=== PATIENT | female | born 1980 | race Caucasian/White ===

== ENCOUNTER 2016-12-17 04:56 | Emergency (ER) | payer MEDICAID ==
[~2016-12-17] VITALS: Ht 160 cm; Wt 70.5 kg
[2016-12-17 04:58] VITALS: Ht 160 cm; Wt 70.5 kg
[2016-12-17] MEDS ORDERED: morphine 4 MG/ML VIAL IV STA (05:04)
[2016-12-17] MEDS ORDERED: SOD CHLORIDE 0.9% 1,000 ML IV STA (05:04)
[2016-12-17] MEDS ORDERED: ONDANSETRON 4 MG INJ IV STA ×2 (05:04→05:45)
[2016-12-17 05:12] LABS: URINE BLOOD (Dip) POC Trace-intact (NEGATIVE)
[2016-12-17 05:30] LABS: BASOPHILS % 0.1 % (0.0-2.0); EOSINOPHILS % 0.2 % (0.0-7.0); HEMATOCRIT 38.5 % (37.0-47.0); HEMOGLOBIN 13.3 g/dl (12.0-16.0); LYMPHOCYTES # 1.2 10^3/ul (0.8-2.9); LYMPHOCYTES % 8.5 % (15.0-51.0); MEAN CORPUSCULAR HEMOGLOBIN 28.8 pg (29.0-33.0); MEAN CORPUSCULAR HGB CONC 34.5 g/dl (32.0-37.0); MEAN CORPUSCULAR VOLUME 83.3 fl (82.0-101.0); MEAN PLATELET VOLUME 7.6 fl (7.4-10.4); MONOCYTE # 0.4 10^3/ul (0.3-0.9); NEUTROPHIL # 12.4 10^3/ul (1.6-7.5); NEUTROPHILS % 88.2 % (39.0-77.0); PLATELET COUNT 303 10^3/UL (140-440); RED BLOOD COUNT 4.62 10^6/ul (4.20-5.40); RED CELL DISTRIBUTION WIDTH 13.4 % (11.5-14.5)
[2016-12-17] MEDS ORDERED: PANTOPRAZOLE 40 MG INJ IV ONE (05:30)
[2016-12-17] MEDS ORDERED: HYDR-906 PO (05:37)
--- NOTE | 2016-12-17 05:37 | ERA ---
ER Documentation Chief Complaint Date/Time DATE: 12/17/16 TIME: 05:33 Chief Complaint Abdominal pain HPI The patient is a 36-year-old female, presenting to the ER because of epigastric and right upper quadrant abdominal pain that began 4 hours ago. The pain is 10/ 10, worse with eating. She denies similar symptoms previously, denies fever, chills, neck pain, chest pain, dyspnea. She complains of nausea but no vomiting , denies any lower abdominal pain, dysuria, polyuria, constipation, diarrhea. She does not smoke, drink Past medical/surgical history: None ROS All systems reviewed and are negative except as per history of present illness. Medications Home Meds Active Scripts Hydrocodone/Acetaminophen ([place] 5-325 Tablet) 1 Each Tablet, 1 TAB PO Q6H Y for PAIN, #7 TAB Prov:GAEL REY MD 12/17/16 Allergies Allergies: Coded Allergies: No Known Drug Allergy (Verified Allergy, Unknown, 09/15/07) PMhx/Soc Medical and Surgical Hx: pt denies Medical Hx, pt denies Surgical Hx History of Surgery: No Anesthesia Reaction: No Hx Neurological Disorder: No Hx Respiratory Disorders: No Hx Cardiac Disorders: No Hx Psychiatric Problems: No Hx Miscellaneous Medical Probl: No Hx Alcohol Use: No Hx Substance Use: No Hx Tobacco Use: No Smoking Status: Never smoker Physical Exam Vitals Vital Signs Date Time Temp Pulse Resp B/P Pulse Ox O2 Delivery O2 Flow Rate FiO2 12/17/16 04:58 98.3 86 20 112/69 98 Physical Exam Const: No acute distress. Head: Atraumatic. Eyes: Normal Conjunctiva. ENT: Normal External Ears, Nose and Mouth. Neck: Full range of motion. No meningismus. Resp: Clear to auscultation bilaterally. Cardio: Regular rate and rhythm, no murmurs. Abd: Soft, non distended, normal bowel sounds, mild epigastric and right upper quadrant tenderness, no right lower quadrant, CVA, rigidity, rebound tenderness Skin: No petechiae or rashes. Back: No midline or flank tenderness. Ext: No cyanosis, or edema. Neur: Awake and alert. No focal deficit Psych: Normal Mood and Affect. Results 24 hrs Laboratory Tests Test 12/17/16 05:12 Bedside Urine Blood Trace-intact Bedside Urine Glucose (UA) Negative Bedside Urine Ketones (LAB) Trace Bedside Urine Leukocyte Esterase (L Trace Bedside Urine Nitrite (LAB) Negative Bedside Urine Protein (LAB) 1+ Bedside Urine pH (LAB) 6.5 Current Medications Medications (Trade) Dose Ordered Sig/Mary Ellen Route PRN Reason Start Time Stop Time Status Last Admin Dose Admin Sodium Chloride (NS) 1,000 ml @ 1,000 mls/hr Q1H STAT IV 12/17/16 05:04 12/17/16 06:03 12/17/16 05:13 Morphine Sulfate (morphine) 4 mg ONCE STAT IV 12/17/16 05:04 12/17/16 05:05 DC 12/17/16 05:14 Ondansetron HCl (Zofran Inj) 4 mg ONCE STAT IV 12/17/16 05:04 12/17/16 05:05 DC 12/17/16 05:13 Pantoprazole 40 mg 40 mg ONCE ONCE IV 12/17/16 05:30 12/17/16 05:31 DC 12/17/16 05:33 Sodium Chloride (NS) 1,000 ml @ 1,000 mls/hr Q1H ONCE IV 12/17/16 06:00 12/17/16 06:59 Hydromorphone HCl (Dilaudid) 1 mg ONCE STAT IV 12/17/16 05:45 12/17/16 05:47 DC Ondansetron HCl (Zofran Inj) 4 mg ONCE STAT IV 12/17/16 05:45 12/17/16 05:47 DC Procedures/MDM MEDICAL MAKING DECISION: The patient is a 36-year-old female, presenting with acute biliary colic. She was treated with morphine 4 mg IV, Dilaudid 1 mg IV for pain, Zofran 4 mg IV 2 for nausea, Protonix IV for epigastric abdominal pain and 1 L normal saline for clinical dehydration with good response. The differential diagnoses considered include but are not limited to cholelithiasis , cholecystitis, cystitis, pancreatitis, hepatitis, gastritis, peptic ulcer disease, gastric ulcer, appendicitis, diverticulitis, cholangitis, choledocholithiasis, partial small bowel obstruction. Departure Diagnosis: Primary Impression: Biliary colic Condition: Good Comments She was discharged with [place] I discussed the findings with the patient. I advised the patient to follow-up with the primary physician in about 1-2 days for referral to general surgery for elective cholecystectomy, sooner if needed and return if any concern. GAEL REY MD Dec 17, 2016 05:37
--- NOTE | 2016-12-17 05:42 | RADRPT ---
PROCEDURE: ULTRASOUND LIMITED ABDOMEN CLINICAL INDICATION: 36-year-old female with abdominal pain. TECHNIQUE: Multiple sonographic of the right upper quadrant of the abdomen were obtained. The imag es were reviewed on a PACS workstation. COMPARISON: None. FINDINGS: The pancreas is partially visualized and is otherwise normal. The liver displays diffuse increase echogenicity consistent with fatty infiltration. The liver measu res 19.0 cm in length. No evidence of intrahepatic biliary ductal dilatation is seen. The portal an d hepatic veins are unremarkable. The gallbladder contains multiple shadowing stones. Gallbladder wall thickness is within normal hess its measuring 1.5 mm. No pericholecystic fluid is seen. The common bile duct measures 5.1 mm and is not dilated. The right kidney displays normal echogenicity. The right kidney measures 10.7 cm in maximal length. No caliectasis or hydronephrosis is seen. No free fluid is seen. IMPRESSION: 1. Diffuse fatty infiltration of the liver. 2. Cholelithiasis. .Ranulfo Acuna MD, MD Date Time Electronically viewed and signed by .Ranulfo Acuna MD, MD on 12/17/2016 05:41 .M/
[2016-12-17] MEDS ORDERED: HYDROmorphONE 1 MG/ML SYG IV STA (05:45)
[2016-12-17 06:00] LABS: ALBUMIN 4.6 g/dl (3.3-4.9)
[2016-12-17] MEDS ORDERED: SOD CHLORIDE 0.9% 1,000 ML IV ONE (06:00)
[2016-12-17 06:01] LABS: CONDITION 1; POTASSIUM 3.7 mmol/L (3.5-5.1)
[2016-12-17 06:03] LABS: ALBUMIN/GLOBULIN RATIO 1.24; BILIRUBIN,INDIRECT 0.4 mg/dl (0-1.1); BILIRUBIN,TOTAL 0.4 mg/dl (0.2-1.3); CREATININE 0.56 mg/dl (0.44-1.00); TOTAL PROTEIN 8.3 g/dl (6.1-8.1)
[2016-12-17 06:04] LABS: CALCIUM 9.3 mg/dl (8.4-10.2)
[2016-12-17 09:16] VITALS: BP 109/79; PULSE 89; RESP 16; TEMP 97.8
== END 2016-12-17 09:16 | disposition home or self-care (01) ==
LOC: E/R 04:56
DX: K80.50 Calculus of bile duct without cholangitis or cholecystitis without obstruction (principal); R11.0 Nausea
CPT/HCPCS: 36415; 76705; 80053; 81003; 83690; 85025; 96361; 96374; 96375; 96376; C9113; J1170; J2270; J2405; J7030; Z7502

== ENCOUNTER 2017-06-09 08:40 | Inpatient (IN) | payer MEDICAID ==
[2017-06-09] VITALS (18 sets, daily range): BP systolic 106–139; BP diastolic 63–78; PULSE 70–102; RESP 16–27; TEMP 98.1; Ht 157.5 cm; Wt 64.0 kg
[~2017-06-09] VITALS: Ht 157.5 cm; Wt 64.0 kg
[~2017-06-09 08:40] MED LIST: HYDR-906 PO
[2017-06-09] MEDS ORDERED: ONDANSETRON 4 MG INJ IV STA ×2 (08:55→12:28)
[2017-06-09] MEDS ORDERED: SOD CHLORIDE 0.9% 1,000 ML IV STA (08:55)
[2017-06-09] MEDS ORDERED: morphine 4 MG/ML VIAL IV STA (08:55)
[2017-06-09 09:08] LABS: ADD SCAN DIFF NO
[2017-06-09 09:23] LABS: BASOPHILS % 0.2 % (0.0-2.0); EOSINOPHILS # 0.1 10^3/ul (0.0-0.5); EOSINOPHILS % 0.6 % (0.0-7.0); HEMATOCRIT 38.6 % (37.0-47.0); HEMOGLOBIN 13.2 g/dl (12.0-16.0); LYMPHOCYTES # 2.2 10^3/ul (0.8-2.9); LYMPHOCYTES % 13.7 % (15.0-51.0); MEAN CORPUSCULAR HEMOGLOBIN 28.4 pg (29.0-33.0); MEAN CORPUSCULAR HGB CONC 34.2 g/dl (32.0-37.0); MEAN CORPUSCULAR VOLUME 83.2 fl (82.0-101.0); MEAN PLATELET VOLUME 9.2 fl (7.4-10.4); MONOCYTE # 0.8 10^3/ul (0.3-0.9); MONOCYTES % 4.7 % (0.0-11.0); NEUTROPHIL # 12.9 10^3/ul (1.6-7.5); NEUTROPHILS % 80.6 % (39.0-77.0); PLATELET COUNT 316 10^3/UL (140-415); RED BLOOD COUNT 4.64 10^6/ul (4.20-5.40); RED CELL DISTRIBUTION WIDTH 12.7 % (11.5-14.5)
[2017-06-09 09:34] LABS: ALBUMIN 4.5 g/dl (3.3-4.9); ALBUMIN/GLOBULIN RATIO 1.25; BILIRUBIN,INDIRECT 0.4 mg/dl (0-1.1); BILIRUBIN,TOTAL 0.4 mg/dl (0.2-1.3); CALCIUM 9.7 mg/dl (8.4-10.2); CREATININE 0.65 mg/dl (0.44-1.00); POTASSIUM 3.4 mmol/L (3.5-5.1); TOTAL PROTEIN 8.1 g/dl (6.1-8.1)
[2017-06-09 09:38] LABS: INR 0.9; PROTIME 12.1 Sec (12.2-14.2); PT RATIO 0.9
[2017-06-09 09:45] LABS: TROPONIN-I 0.016 ng/ml (0.00-0.12)
[2017-06-09 10:06] LABS: ADD UMIC YES; UR ASCORBIC ACID NEGATIVE (NEGATIVE); UR BILIRUBIN (Dip) NEGATIVE (NEGATIVE); UR BLOOD (Dip) NEGATIVE (NEGATIVE); UR CLARITY CLEAR (CLEAR); UR COLOR YELLOW (YELLOW); UR GLUCOSE (Dip) NEGATIVE (NEGATIVE); UR KETONES (Dip) 1+ mg/dL (NEGATIVE); UR LEUKOCYTE ESTERASE (Dip) NEGATIVE Leu/ul (NEGATIVE); UR MUCUS FEW /HPF (NONE SEEN); UR NITRITE (Dip) NEGATIVE (NEGATIVE); UR RBC 1 /HPF (0-5); UR SQUAMOUS EPITHELIAL CELL FEW /HPF (FEW); UR TOTAL PROTEIN (Dip) 1+ mg/dl (NEGATIVE); UR UROBILINOGEN (Dip) NEGATIVE (NEGATIVE)
[2017-06-09] MEDS ORDERED: CEFTRIAXONE 1 GM/50 ML (PMX) 50 ML IVPB ONE (10:30)
--- NOTE | 2017-06-09 11:14 | RADRPT ---
PROCEDURE: CT Abdomen and pelvis without contrast. CLINICAL INDICATION: Abdominal pain. Vomiting. TECHNIQUE: CT scan of the abdomen and pelvis without contrast was performed on a multidetector hig h-resolution CT scan. . Coronal and sagittal reformatted images were obtained from the axial [facility] e images. Standard CT scan of the abdomen pelvis without contrast protocols were performed. The total exam CTDI equals 9.65 mGy and the total exam DLP equals 560.04 mGy-cm. One or more of the following dose reduction techniques were used: - Automated exposure control. - Adjustment of the mA and/or kV according to patient size. Use of iterative reconstruction technique. COMPARISON: Abdominal ultrasound 12/17/2016 FINDINGS: The gallbladder is distended and there are multiple calcified gallstones. No gallbladder wall thick ening or pericholecystic fluid. There is a prominent common bile duct with a maximal diameter of ap proximately 6 mm. No choledocholithiasis is demonstrated and no evidence of intrahepatic biliary du ctal dilation. Recommend clinical correlation and consideration of a right upper quadrant abdominal ultrasound. The liver spleen pancreas and adrenal glands are unremarkable. The kidneys are normal in size without calcified renal calculi, hydronephrosis or intra renal masses bilaterally. There is mild urinary bladder wall thickening is nonspecific and may represent cystit is. The uterus is anteverted anteflexed but otherwise unremarkable. In the left adnexa is a 2.5 cm cyst likely a left ovarian cyst. No other adnexal masses. A pelvic ultrasound may be helpful for f urther evaluation. The stomach, small bowel, large bowel and appendix are unremarkable. Negative for intra-abdominal fr ee air, free fluid, abscesses or lymphadenopathy. The aorta is unremarkable. Lung bases are unremarkable. The osseous structures are unremarkable wi thout acute osseous findings are osteoblastic/osteolytic lesions. The lower thoracic abdominal pelv ic rodriguez are unremarkable. IMPRESSION: 1. Multiple calcified gallstones without gallbladder wall thickening or pericholecystic fluid. 2. Prominent common bile duct with a maximal diameter of 6 mm. No choledocholithiasis demonstrated and no evidence of intrahepatic biliary ductal dilation. The right upper quadrant ultrasound may be helpful for further evaluation. 3. In the left adnexa is a 2.5 cm cyst likely a left ovarian cyst. No other adnexal masses. Pelvi c ultrasound may be helpful for further evaluation. 4. Mild urinary bladder wall thickening and underlying cystitis should be considered. 5. No evidence of gastrointestinal disease. Negative for intra-abdominal free air fluid abscesses or lymphadenopathy. RPTAT:AAJJ Melinda Olson Physician Date Time Electronically viewed and signed by Melinda Olson Physician on 06/09/2017 11:14 BM/
[2017-06-09] MEDS ORDERED: SOD CHLORIDE 0.9% 1,000 ML IV ONE (11:30)
--- NOTE | 2017-06-09 11:50 | ERA ---
ER Documentation Chief Complaint Date/Time DATE: 06/09/17 TIME: 11:44 Chief Complaint abd pain with nausea /vomiting since morning h/o gall stones HPI 37-year-old woman presents with right upper quadrant abdominal pain, nausea, and vomiting. She has had multiple episodes of nonbloody nonbilious emesis beginning this morning. She has had similar episodes in the past and has a history of cholelithiasis. She denies diarrhea, no melena, no blood per rectum , no fevers or chills, no chest pain or shortness of breath. ROS All systems reviewed and are negative except as per history of present illness. Medications Home Meds Discontinued Scripts Hydrocodone/Acetaminophen ([place] 5-325 Tablet) 1 Each Tablet, 1 TAB PO Q6H Y for PAIN, #7 TAB Prov:GAEL REY MD 12/17/16 Allergies Allergies: Coded Allergies: No Known Drug Allergy (Verified Allergy, Unknown, 06/09/17) PMhx/Soc Cholelithiasis History of Surgery: No Anesthesia Reaction: No Hx Neurological Disorder: No Hx Respiratory Disorders: No Hx Cardiac Disorders: No Hx Psychiatric Problems: No Hx Miscellaneous Medical Probl: No () Hx Alcohol Use: No Hx Substance Use: No Hx Tobacco Use: No Smoking Status: Never smoker FmHx Family History: No diabetes Physical Exam Vitals Vital Signs Date Time Temp Pulse Resp B/P Pulse Ox O2 Delivery O2 Flow Rate FiO2 06/09/17 12:22 97.8 06/09/17 11:53 98.3 70 17 100/50 100 Room Air 06/09/17 09:44 97.9 60 17 105/60 100 Room Air 06/09/17 08:51 Nasal Cannula 2 06/09/17 08:42 97.6 68 18 89/50 100 Physical Exam GENERAL: Well-developed, moderate discomfort, dehydrated, afebrile, afebrile HEENT: Dry mucous membranes, pink conjunctiva, no cervical spine tenderness or step-off deformities, no goiter, no jaundice or icterus, extraocular movements intact without pain. No submandibular induration, and no pharyngeal erythema NEURO: Alert and oriented 3, cranial nerves II through XII intact bilaterally, pupils equal round reactive to light, no focal deficits or facial asymmetry, sensation intact distally Strength 5/5 in upper and lower extremities bilaterally CARDIAC: Regular rate and rhythm, no murmurs rubs or gallops LUNGS: Clear bilaterally no wheezing crackles or stridor ABDOMEN: Right upper quadrant tenderness to touch with voluntary guarding, positive Rust sign, no rigidity or rebound SKIN: Warm and dry to touch, no abrasions, contusions, or hematomas, no lacerations, no ecchymosis, no target lesions, and without ulcers EXTREMITIES: No clubbing cyanosis or edema, calves are bilaterally symmetrical, no Homans sign, no popliteal cord sign. Distal pulses equal and bilateral PSYCH: Normal affect without agitation or irritability Result Diagram: 06/09/1789906/09/17899 Results 24 hrs Laboratory Tests Test 06/09/17 09:00 06/09/17 09:50 White Blood Count 16.010^3/ul Red Blood Count 4.6410^6/ul Hemoglobin 13.2g/dl Hematocrit 38.6% Mean Corpuscular Volume 83.2fl Mean Corpuscular Hemoglobin 28.4pg Mean Corpuscular Hemoglobin Concent 34.2g/dl Red Cell Distribution Width 12.7% Platelet Count 28565^3/UL Mean Platelet Volume 9.2fl Neutrophils % 80.6% Lymphocytes % 13.7% Monocytes % 4.7% Eosinophils % 0.6% Basophils % 0.2% Nucleated Red Blood Cells % 0.0/100WBC Neutrophils # 12.910^3/ul Lymphocytes # 2.210^3/ul Monocytes # 0.810^3/ul Eosinophils # 0.110^3/ul Basophils # 0.010^3/ul Nucleated Red Blood Cells # 0.010^3/ul Prothrombin Time 12.1Sec Prothrombin Time Ratio 0.9 INR International Normalized Ratio 0.90 Sodium Level 143mmol/L Potassium Level 3.4mmol/L Chloride Level 99mmol/L Carbon Dioxide Level 23mmol/L Anion Gap 24 Blood Urea Nitrogen 18mg/dl Creatinine 0.65mg/dl Glucose Level 141mg/dl Calcium Level 9.7mg/dl Total Bilirubin 0.4mg/dl Direct Bilirubin 0.00mg/dl Indirect Bilirubin 0.4mg/dl Aspartate Amino Transf (AST/SGOT) 67IU/L Alanine Aminotransferase (ALT/SGPT) 42IU/L Alkaline Phosphatase 93IU/L Troponin I 0.016ng/ml Total Protein 8.1g/dl Albumin 4.5g/dl Globulin 3.60g/dl Albumin/Globulin Ratio 1.25 Lipase 56U/L Urine Color YELLOW Urine Clarity CLEAR Urine pH 8.0 Urine Specific [place] 1.020 Urine Ketones 1+mg/dL Urine Nitrite NEGATIVEmg/dL Urine Bilirubin NEGATIVEmg/dL Urine Urobilinogen NEGATIVEmg/dL Urine Leukocyte Esterase NEGATIVELeu/ul Urine Microscopic RBC 1/HPF Urine Microscopic WBC 1/HPF Urine Squamous Epithelial Cells FEW/HPF Urine Mucus FEW/HPF Urine Hemoglobin NEGATIVEmg/dL Urine Glucose NEGATIVEmg/dL Urine Total Protein 1+mg/dl Current Medications Medications (Trade) Dose Ordered Sig/Mary Ellen Route PRN Reason Start Time Stop Time Status Last Admin Dose Admin Sodium Chloride (NS) 1,000 ml @ 1,000 mls/hr Q1H STAT IV 06/09/17 08:55 06/09/17 09:54 DC 06/09/17 09:06 Morphine Sulfate (morphine) 4 mg ONCE STAT IV 06/09/17 08:55 06/09/17 08:57 DC 06/09/17 09:05 Ondansetron HCl 4 mg 4 mg ONCE STAT IV 06/09/17 08:55 06/09/17 08:57 DC 06/09/17 09:05 Ceftriaxone Sodium 50 ml @ 100 mls/hr ONCE ONCE IVPB 06/09/17 10:30 06/09/17 10:59 DC 06/09/17 11:23 Sodium Chloride (NS) 1,000 ml @ 1,000 mls/hr Q1H ONCE IV 06/09/17 11:30 06/09/17 12:29 DC 06/09/17 11:24 Ondansetron HCl (Zofran Inj) 4 mg ONCE STAT IV 06/09/17 12:28 06/09/17 12:30 DC Ketorolac Tromethamine 15 mg 15 mg ONCE STAT IV 06/09/17 12:28 06/09/17 12:30 DC 06/09/17 12:34 Metronidazole (Flagyl 500 Mg (Pmx)) 100 ml @ 100 mls/hr ONCE ONCE IVPB 06/09/17 13:00 06/09/17 13:59 Procedures/MDM IV line was established patient was placed on air sampling and monitoring rhythm strip revealed a sinus rhythm at about 70 bpm with upright P and T waves. Patient was afebrile. Patient was initially hypotensive and received 2 L normal saline intravenously, morphine 4 mg IV, and Zofran 4 mg IV with good response. Patient's blood pressure improved with IV fluid administration and pain control. EKG performed, read by me: 72 bpm, normal sinus rhythm, normal axis, no acute ST segment changes, narrow QRS complex, with good R-wave progression in precordial leads. CT scan of the abdomen and pelvis revealed cholelithiasis no other acute inflammatory infectious pathology was noted. CBC reveals leukocytosis of 16, electrolytes revealed dehydration and hypokalemia 3.4, liver function tests normal, troponin negative. Patient received 1 dose of ceftriaxone 1 g IV here in the ER, later followed by metronidazole 500 mg IV. Gallbladder ultrasound revealed cholelithiasis. Please refer to radiologist dictation for full report. Patient received potassium supplementation 60 mEq p.o. for hypokalemia. I spoke to surgeon director of personnel Dr. Corey regarding the patient's presentation and physical findings. We also discussed ultrasound findings. Patient will be admitted for continued medical management, pain control, and reevaluation. Patient may require acute cholecystectomy. I suspect acute cholecystitis. Departure Diagnosis: Primary Impression: Dehydration Additional Impressions: Hypotension Qualified Code: I95.9 - Hypotension, unspecified hypotension type Cholelithiasis Qualified Code: K80.20 - Calculus of gallbladder without cholecystitis without obstruction Leukocytosis Qualified Code: D72.829 - Leukocytosis, unspecified type Acute cholecystitis Acute hypokalemia Condition: ANTHONY Padilla MD Jun 09, 2017 11:50
[2017-06-09] MEDS ORDERED: KETOROLAC 15 MG INJ IV STA (12:28)
--- NOTE | 2017-06-09 12:32 | RADRPT ---
PROCEDURE: Abdominal Ultrasound (right upper quadrant). CLINICAL INDICATION: Abdominal pain TECHNIQUE: Multiple real-time longitudinal and transverse images of the right upper quadrant of th e abdomen were acquired utilizing a curved array transducer. Images were reviewed on a high-resoluti on PACS workstation. COMPARISON: CT abdomen pelvis 06/09/2017 FINDINGS: The liver is normal in size and echogenicity. No focal masses are identified. There is no evidenc e of intra or extrahepatic ductal dilatation. The common bile duct measures 5.5 mm in diameter. Gal lstones are identified within the gallbladder. There is no gallbladder wall thickening. The visualized portions of the pancreas are unremarkable with obscuration of the tail of the pancrea s. No free fluid is identified. There is no evidence of right hydronephrosis or renal calcification. The right kidney measures 11.4 cm in length. The visualized portions of the aorta and inferior vena cava are within normal limits. IMPRESSION: 1. Cholelithiasis. 2. Otherwise unremarkable right upper quadrant ultrasound. RPTAT: KK .Gilberto Lee MD, Date Time Electronically viewed and signed by .Gilberto Lee MD, MD on 06/09/2017 12:31 .B/
[2017-06-09] MEDS ORDERED: metroNIDAZOLE 500 MG/NS (PMX) 100 ML IVPB ONE (13:00)
[2017-06-09] MEDS ORDERED: POTASSIUM CHLORIDE (SR) 20 MEQ TAB PO STA (13:35)
[2017-06-09] MEDS ORDERED: MAGNESIUM HYDROXIDE 30ML CUP PO PRN (16:30)
[2017-06-09] MEDS ORDERED: ACETAMINOPHEN 650 MG SUPP PR PRN (16:30)
[2017-06-09] MEDS ORDERED: DOCUSATE SODIUM 100 MG CAP PO PRN (16:30)
[2017-06-09] MEDS ORDERED: ONDANSETRON 4 MG INJ IV PRN ×3 (16:30→20:00)
[2017-06-09] MEDS ORDERED: ACETAMINOPHEN 325 MG TAB PO PRN (16:30)
[2017-06-09] MEDS ORDERED: morphine 2 MG INJ IV PRN ×2 (16:30→20:00)
[2017-06-09] MEDS ORDERED: NACL 0.9% 3 ML SYG IV SCH (16:30)
[2017-06-09] MEDS ORDERED: BISACODYL 10 MG SUPP PR PRN (16:30)
[2017-06-09] MEDS ORDERED: HYDROCODONE/APAP (5/325) TAB PO PRN ×2 (16:30)
[2017-06-09] MEDS: SOD CHLORIDE 0.9% 1,000 ML IV SCH (16:32)
[2017-06-09] MEDS: PANTOPRAZOLE 40 MG INJ IV SCH (16:39)
[2017-06-09] MEDS ORDERED: PIPER-TAZO 3.375 GM IV (PMX) 100 ML IVPB SCH ×2 (16:45→21:00)
--- NOTE | 2017-06-09 17:29 | HP ---
Date/Time of Note Date/Time of Note DATE: 06/09/17 TIME: 17:25 Assessment/Plan VTE Prophylaxis VTE Prophylaxis Intervention: SCD's Lines/Catheters IV [facility]from [facility] Saline Lock Assessment/Plan Chief Complaint/Hosp Course Impression and plan 1. Abdominal pain with cholelithiasis and possible early cholecystitis. Patient to be seen by surgeon. Continue IV hydration and analgesics. N.p.o. for now. We will follow-up postop for possible laparoscopic cholecystectomy 2. History of cholelithiasis. Continue IV hydration. Surgeon to follow. DVT prophylaxis: SCDs Admission process time greater than 30 minutes Discussed plan of care with Dr. Goodrich Problems: HPI/ROS Admit Date/Time Admit Date/Time Jun 09, 2017 at 13:32 Hx of Present Illness This is a 37-year-old female who reports having history of gallstones who came to [facility] due to reports of abdominal pain that started this morning around 8 AM when she woke up. She also reported having some nausea and vomiting nonbilious nonbloody. She denies any sick contacts or any symptoms of chest pain or shortness of breath. She reports her pain is in the upper right abdominal quadrant that radiates to her back. She did come to [facility] and had a gallbladder ultrasound that did show her to have cholelithiasis but otherwise unremarkable right upper quadrant abdominal ultrasound. Additionally of abdominal pelvic CT scan did show multiple calcified gallstones without gallbladder wall thickening or pericholecystic fluid. There is also seen prominent common bile duct measuring 6 mm in diameter. Of note there is also seen the left adnexa 2.5 cm cyst likely a left ovarian cyst. On labs patient was with white count of 16.0. She did remain afebrile. She also was with slight hypokalemia with potassium 3.4. Currently the patient reports having some pain on right upper quadrant of abdomen more notably on palpation. She does not remember the last time her bowel movement was. She denied any pain with eating. We will evaluate her for the aformentiond issues ROS 12 point review of systems obtained and entirely negative except that mentioned in the history of present illness PMH/Family/Social Past Medical History Medical/surgical history 1. Cholelithiasis Family History Significant Family History: no pertinent family hx Social History Alcohol Use: none Smoking Status: Never smoker Drug Use: none Exam/Review of Systems Vital Signs Vitals Vital Signs Date Time Temp Pulse Resp B/P Pulse Ox O2 Delivery O2 Flow Rate FiO2 06/09/17 15:46 98.5 70 18 114/67 98 Room Air 06/09/17 08:51 2 Exam Constitutional: alert, oriented Psych: no complaints Neck: supple, No jvd Respiratory: clear to auscultation, normal air movement Cardiovascular: regular rate and rhythm Gastrointestinal: soft, tender (On right upper abdominal quadrant) Extremities: No edema Neurological: WELFARE ELIGIBILITY INTERVIEWER II-XII intact, nl mental status Labs Result Diagram: 06/09/17 0900 06/09/17 0900 Medications Medications Current Medications Sodium Chloride (NS) 1,000 ml @ 100 mls/hr Q10H IV Last administered on t 16:32; Admin Dose 100 MLS/HR; Start 06/09/17 at 16:03 Ondansetron HCl (Zofran Inj) 4 mg Q6H PRN IV NAUSEA AND/OR VOMITING; Start at 16:30 Acetaminophen (Tylenol Tab) 650 mg Q6H PRN PO PAIN LEVEL 1-3 OR FEVER; Start at 16:30 Acetaminophen (Tylenol Supp) 650 mg Q6H PRN [place] PAIN LEVEL 1-3 OR FEVER; Start 06/09/17 at 16:30 Acetaminophen/ Hydrocodone Bitart ([place] (5/325)) 1 tab Q6H PRN PO MODERATE PAIN LEVEL 4-6; Start 06/09/17 at 16:30 Acetaminophen/ Hydrocodone Bitart ([place] (5/325)) 2 tab Q6H PRN PO SEVERE PAIN LEVEL 7-10; Start 06/09/17 at 16:30 Morphine Sulfate (morphine) 2 mg Q4H PRN IV SEVERE PAIN LEVEL 7-10; Start 06/09 at 16:30 Docusate Sodium (Colace) 100 mg Q12H PRN PO CONSTIPATION; Start 06/09/17 at 16: 30 Magnesium Hydroxide (Milk Of Mag) 30 ml DAILY PRN PO CONSTIPATION; Start at 16:30 Bisacodyl (Dulcolax Supp) 10 mg DAILY PRN [place] CONSTIPATION; Start 06/09/17 at 16 :30 Pantoprazole 40 mg 40 mg DAILY@06 IV Last administered on 06/09/17 16:39; Admin Dose 40 MG; Start 06/09/17 at 16:35 Piperacillin Sod/ Tazobactam Sod (Zosyn 3.375gm/ 100 ml (Pmx)) 100 ml @ 200 mls /hr Q6 IVPB Last administered on 06/09/17 16:39; Admin Dose 200 MLS/HR; Start 06/09/17 at 16:45 LUIS SLOAN Jun 09, 2017 17:28
[2017-06-09] MEDS ORDERED: BUPIVACAINE 0.5%/EPI (SDV) 10 ML INJ ONE (18:38)
[2017-06-09] MEDS ORDERED: LIDOCAINE 1% (MDV) 20 ML INJ ONE (18:58)
[2017-06-09] MEDS ORDERED: FENTAnyl 50 MCG/ML VIAL ONE (18:58)
[2017-06-09] MEDS ORDERED: MIDAZOLAM 1 MG/ML 2 ML INJ ONE (18:58)
[2017-06-09] MEDS ORDERED: SUCCINYLCHOLINE CHLORIDE 100 MG/5 ML SYG IV ONE (18:58)
[2017-06-09] MEDS ORDERED: ROCURONIUM 50 MG INJ ONE (18:58)
[2017-06-09] MEDS ORDERED: PROPOFOL 20 ML ONE (18:58)
[2017-06-09] MEDS ORDERED: FAMOTIDINE 20 MG INJ ONE (19:09)
[2017-06-09] MEDS ORDERED: ONDANSETRON 4 MG INJ ONE (19:09)
[2017-06-09] MEDS ORDERED: DEXAMETHASONE 4 MG/ML 1 ML INJ ONE (19:09)
[2017-06-09] MEDS ORDERED: ROPIVACAINE 0.2% 20 ML VIAL ONE (19:21)
[2017-06-09] MEDS ORDERED: DIPHENHYDRAMINE 50 MG INJ IV PRN (19:30)
[2017-06-09] MEDS ORDERED: HYDROmorphONE (0.2 MG/ML) 10ML SYG IV PRN ×2 (19:30)
[2017-06-09] MEDS ORDERED: PROCHLORPERAZINE 10 MG INJ IV PRN (19:30)
[2017-06-09] MEDS ORDERED: SUGAMMADEX SODIUM 200 MG/2 ML VIAL IV ONE (19:36)
[2017-06-09] MEDS ORDERED: KETOROLAC 30 MG INJ ONE (19:37)
[2017-06-09] MEDS ORDERED: BUPIVACAINE 0.25%/EPI (SDV) 30 ML INJ INJ ONE (19:42)
--- NOTE | 2017-06-09 19:56 | OPR ---
Date/Time of Note Date/Time of Note DATE: 06/09/17 TIME: 19:52 Operative Report Procedure Date: Jun 09, 2017 Preoperative Diagnosis Acute cholecystitis Postoperative Diagnosis Acute cholecystitis Operation Performed Laparoscopic cholecystectomy Surgeon: ANGEL MANLEY MD Anesthesia: general Anesthesiologist: LOPEZ SAMS DO Estimated Blood Loss: 0 - 10 ml's Specimens Gallbladder Grafts/Implants None Tubes/Drains None Complications: None Pt Condition Post Procedure: stable Disposition: PACU Indications Symptoms Operative\Procedure Findings After satisfactory general endotracheal anesthesia was achieved, the abdomen was prepped and draped in the usual fashion. The abdomen was insufflated with carbon dioxide through an umbilical Veress needle to 15 mmHg pressure. The Veress needle was removed and the umbilical incision extended to 5 mm through which a 5 mm trocar was placed. A 5 mm 0 lens was placed. Laparoscopy showed an acutely inflamed distended gallbladder. Under direct visualization a 12 mm epigastric trocar was placed as well as 2 5 mm right lateral abdominal trochars. The dome of the gallbladder was grasped and retracted superiorly. The distal gallbladder was grasped and retracted inferior laterally. The hepatoduodenal ligament was carefully dissected between the gallbladder and the well-visualized castro hepatis. The cystic duct was then triply hemoclipped and divided high at the junction of the gallbladder and cystic duct. The cystic artery was identified immediately posteriorly and was triply hemoclipped and divided. The gallbladder was then dissected from below using electrocautery dissection and placed fully intact into an Endo Catch removed by the 12 mm port site. Hemostasis of liver bed was total and irrigant returned clear. The abdomen was then desufflated and the trochars were removed. The fascia of the epigastrium was closed with a single suture of 0 Vicryl. The skin punctures were infiltrated with 30 cc of 0.25% Marcaine with epinephrine and closed with gisela. Sponge and needle counts were reported as correct 2. ANGEL MANLEY MD Jun 09, 2017 19:56
[2017-06-09] MEDS ORDERED: OXYCODONE/ACETAMINOPHEN (5/325) TAB PO PRN (20:00)
[2017-06-09] MEDS: MEPERIDINE 25 MG INJ IV PRN ×2 (20:21→20:22)
[2017-06-09] MEDS: CEFAZOLIN 1 GM/50 ML (PMX) 50 ML IVPB SCH (22:44)
[2017-06-10] MEDS: SOD CHLORIDE 0.9% 1,000 ML IV SCH ×3 (01:09→13:56)
[2017-06-10 02:26] VITALS: BP 128/70; RESP 18
[2017-06-10] MEDS: PANTOPRAZOLE 40 MG INJ IV SCH (05:37)
[2017-06-10] MEDS: CEFAZOLIN 1 GM/50 ML (PMX) 50 ML IVPB SCH ×3 (05:37→21:26)
[2017-06-10 05:45] LABS: ADD SCAN DIFF NO
[2017-06-10 05:49] LABS: BASOPHILS % 0.1 % (0.0-2.0); HEMATOCRIT 37.5 % (37.0-47.0); HEMOGLOBIN 12.6 g/dl (12.0-16.0); LYMPHOCYTES # 0.8 10^3/ul (0.8-2.9); LYMPHOCYTES % 5.5 % (15.0-51.0); MEAN CORPUSCULAR HEMOGLOBIN 28.3 pg (29.0-33.0); MEAN CORPUSCULAR HGB CONC 33.6 g/dl (32.0-37.0); MEAN CORPUSCULAR VOLUME 84.1 fl (82.0-101.0); MEAN PLATELET VOLUME 9.1 fl (7.4-10.4); MONOCYTE # 0.3 10^3/ul (0.3-0.9); MONOCYTES % 2.3 % (0.0-11.0); NEUTROPHIL # 13.3 10^3/ul (1.6-7.5); NEUTROPHILS % 91.6 % (39.0-77.0); PLATELET COUNT 266 10^3/UL (140-415); RED BLOOD COUNT 4.46 10^6/ul (4.20-5.40); WHITE BLOOD COUNT 14.5 10^3/ul (4.8-10.8)
[2017-06-10 06:13] LABS: ALBUMIN 3.4 g/dl (3.3-4.9); ALBUMIN/GLOBULIN RATIO 1.25; BILIRUBIN,INDIRECT 0.3 mg/dl (0-1.1); BILIRUBIN,TOTAL 0.3 mg/dl (0.2-1.3); CALCIUM 8.5 mg/dl (8.4-10.2); CHOL/HDL RATIO 2.5 RATIO; CREATININE 0.55 mg/dl (0.44-1.00); MAGNESIUM 1.6 mg/dl (1.7-2.5); PHOSPHORUS 4.2 mg/dl (2.5-4.9); POTASSIUM 5.2 mmol/L (3.5-5.1); TOTAL PROTEIN 6.1 g/dl (6.1-8.1)
[2017-06-10 06:39] LABS: T3 UPTAKE 35.6 % (23.5-40.5)
[2017-06-10 06:41] LABS: THYROID STIMULATING HORMONE 0.589 MIU/L (0.465-4.680)
--- NOTE | 2017-06-10 07:24 | CONS ---
DATE OF ADMISSION: 06/09/2017 DATE OF CONSULTATION: 06/09/2017 REASON FOR CONSULTATION: Acute cholecystitis. The patient is an otherwise healthy 37-year-old female, who presents to the emergency room with several episodes of right upper quadrant abdominal pain and vomiting. She has a known history of gallstones. In the emergency room, today she was noted to have elevated white blood cell count, and tender right upper quadrant with a positive Rust sign. Imaging was compatible with gallstones. The patient is admitted and surgical consultation was requested in that regard. She has had no fevers, chills, or jaundice. PAST MEDICAL HISTORY: No previous hospitalizations or illnesses other than noted above. REVIEW OF SYSTEMS: HEENT: Unremarkable. LUNGS: No history of asthma or shortness of breath, or pneumonia. HEART: No history of chest pain, PR or arrhythmia. ABDOMEN: In the HPI. EXTREMITIES: Unremarkable. MEDICATION: None. ALLERGIES: NONE. PHYSICAL EXAMINATION: GENERAL APPEARANCE: Patient is a fit-appearing, 37-year-old female, who is awake, alert, in no acute distress. HEENT: Eyes, nose, throat within normal limits. LUNGS: Clear. HEART: Regular rhythm. ABDOMEN: Tender in the right upper quadrant with positive Rust sign. EXTREMITIES: Unremarkable. LABORATORY: Hematocrit 38.6, with a white count of 16,000. BUN, glucose, and electrolytes are unremarkable. LFTs are normal. IMPRESSION: This patient has acute cholecystitis and will most certainly benefit by laparoscopic cholecystectomy as this is at least the second ER visit. The procedure, outcomes, alternatives, and risks have been detailed to the patient who has an excellent understanding of the nature of her situation and agrees to the proposed plan of therapy as outlined. Dictated By: Eyad Corey MD /[email or web address]/[email or web address] /Document#: [id number]
[2017-06-10 07:50] VITALS: BP 116/63; RESP 22
--- NOTE | 2017-06-10 09:06 | PN ---
Date/Time of Note Date/Time of Note DATE: 06/10/17 TIME: 09:05 Assessment/Plan Lines/Catheters IV Catheter Type (from Nrs): Peripheral IV Assessment/Plan Assessment/Plan Cleared for discharge home today Office follow-up 1 week Subjective 24 Hr Interval Summary Postoperative day #1. Patient markedly symptomatically improved Abdominal examination is benign Leukocytosis improved Exam/Review of Systems Vital Signs Vitals Vital Signs Date Time Temp Pulse Resp B/P Pulse Ox O2 Delivery O2 Flow Rate FiO2 06/10/17 07:50 98.3 87 22 116/63 96 06/09/17 21:11 Room Air 06/09/17 08:51 2 Intake and Output 06/09/17 06/09/17 06/10/17 15:00 23:00 07:00 Intake Total 670 ml 500 ml Output Total 5 ml Balance 665 ml 500 ml Results Result Diagram: 06/10/17 0532 06/10/17 0532 ANGEL MANLEY MD Jun 10, 2017 09:06
[2017-06-10] MEDS ORDERED: CEPH500C PO (09:23)
--- NOTE | 2017-06-10 09:30 | PDOCDIS ---
Discharge Instructions DIAGNOSIS Discharge Diagnosis 1. Abdominal pain with cholelithiasis and possible early cholecystitis. 2. History of cholelithiasis. CONDITION Patient Condition: Stable HOME CARE INSTRUCTIONS: Diet Instructions: Low Fat /Cholesterol ACTIVITY: Activity Restrictions: Slowly Increase Activity Rest between Activity FOLLOW UP/APPOINTMENTS Follow-up Plan 1. Follow up with Dr. Eyad Corey in one week LUIS SLOAN Jun 10, 2017 09:29
[2017-06-10] MEDS: OXYCODONE/ACETAMINOPHEN (5/325) TAB PO PRN ×2 (12:54→18:24)
[2017-06-10 13:04] VITALS: BP 111/64; RESP 18
--- NOTE | 2017-06-10 18:04 | PN ---
Date/Time of Note Date/Time of Note DATE: 06/10/17 TIME: 18:00 Assessment/Plan VTE Prophylaxis VTE Prophylaxis Intervention: SCD's Lines/Catheters IV Catheter Type (from Nrsg): Peripheral IV Assessment/Plan Chief Complaint/Hosp Course Impression and plan 1. Abdominal pain with cholelithiasis and possible early cholecystitis. continue with analgesics. still with pain. adjust pain meds as needed 2. History of cholelithiasis. Continue IV hydration. Surgeon to follow. DVT prophylaxis: SCDs DISPO/PLAN: still with moderate abd pain. continue with analgesics and monitor for improvement of symptoms. monitor inhouse for now Discussed plan of care with Dr. Goodrich Problems: Subjective 24 Hr Interval Summary Free Text/Dictation resting at this time. no s/s of distress Exam/Review of Systems Vital Signs Vitals Vital Signs Date Time Temp Pulse Resp B/P Pulse Ox O2 Delivery O2 Flow Rate FiO2 06/10/17 13:04 97.9 79 18 111/64 96 06/09/17 21:11 Room Air 06/09/17 08:51 2 Intake and Output 06/09/17 06/09/17 06/10/17 15:00 23:00 07:00 Intake Total 670 ml 500 ml Output Total 5 ml Balance 665 ml 500 ml Exam Constitutional: alert, oriented Respiratory: clear to auscultation Cardiovascular: regular rate and rhythm Gastrointestinal: soft, tender Musculoskeletal: nl extremities to inspection Neurological: APPRAISER II-XII intact, nl mental status, nl speech Results Result Diagram: 06/10/17 0532 06/10/17 0532 Results 24 hrs Laboratory Tests Test 06/10/17 05:32 White Blood Count 14.5 H Red Blood Count 4.46 Hemoglobin 12.6 Hematocrit 37.5 Mean Corpuscular Volume 84.1 Mean Corpuscular Hemoglobin 28.3 L Mean Corpuscular Hemoglobin Concent 33.6 Red Cell Distribution Width 13.0 Platelet Count 266 Mean Platelet Volume 9.1 Neutrophils % 91.6 H Lymphocytes % 5.5 L Monocytes % 2.3 Eosinophils % 0.0 Basophils % 0.1 Nucleated Red Blood Cells % 0.0 Neutrophils # 13.3 H Lymphocytes # 0.8 Monocytes # 0.3 Eosinophils # 0.0 Basophils # 0.0 Nucleated Red Blood Cells # 0.0 Sodium Level 142 Potassium Level 5.2 H Chloride Level 105 Carbon Dioxide Level 24 Anion Gap 18 H Blood Urea Nitrogen 11 Creatinine 0.55 Glucose Level 121 Hemoglobin A1c 5.7 Calcium Level 8.5 Phosphorus Level 4.2 Magnesium Level 1.6 L Total Bilirubin 0.3 Direct Bilirubin 0.00 Indirect Bilirubin 0.3 Aspartate Amino Transf (AST/SGOT) 121 H Alanine Aminotransferase (ALT/SGPT) 120 H Alkaline Phosphatase 83 Total Protein 6.1 # Albumin 3.4 # Globulin 2.70 Albumin/Globulin Ratio 1.25 Triglycerides Level 44 Cholesterol Level 150 LDL Cholesterol, Calculated 82 HDL Cholesterol 59 Cholesterol/HDL Ratio 2.5 Thyroid Stimulating Hormone (TSH) 0.589 Free Thyroxine Index 2.10 Thyroxine (T4) 5.9 Triiodothyronine (T3) Uptake 35.6 Medications Medications Current Medications Sodium Chloride (NS) 1,000 ml @ 100 mls/hr Q10H IV Last administered on 13:56; Admin Dose 100 MLS/HR; Start 06/09/17 at 16:03 Acetaminophen (Tylenol Tab) 650 mg Q6H PRN PO PAIN LEVEL 1-3 OR FEVER; Start at 16:30 Acetaminophen (Tylenol Supp) 650 mg Q6H PRN MO PAIN LEVEL 1-3 OR FEVER; Start 06/09/17 at 16:30 Acetaminophen/ Hydrocodone Bitart ([place] (5/325)) 1 tab Q6H PRN PO MODERATE PAIN LEVEL 4-6; Start 06/09/17 at 16:30 Acetaminophen/ Hydrocodone Bitart ([place] (5/325)) 2 tab Q6H PRN PO SEVERE PAIN LEVEL 7-10 Last administered on 06/10/17 08:19; Admin Dose 2 TAB; Start at 16:30 Morphine Sulfate (morphine) 2 mg Q4H PRN IV SEVERE PAIN LEVEL 7-10 Last administered on 06/09/17 21:39; Admin Dose 2 MG; Start 06/09/17 at 16:30 Docusate Sodium (Colace) 100 mg Q12H PRN PO CONSTIPATION; Start 06/09/17 at 16: 30 Magnesium Hydroxide (Milk Of Mag) 30 ml DAILY PRN PO CONSTIPATION; Start at 16:30 Bisacodyl (Dulcolax Supp) 10 mg DAILY PRN [place] CONSTIPATION; Start 06/09/17 at 16 :30 Pantoprazole (Protonix Iv) 40 mg DAILY@06 IV Last administered on 06/10/17 05: 37; Admin Dose 40 MG; Start 06/09/17 at 16:35 Oxycodone/ Acetaminophen (Percocet (5/ 325)) 1 tab Q4H PRN PO MILD PAIN (1-3); Start 06/09/17 at 20:00 Oxycodone/ Acetaminophen (Percocet (5/ 325)) 2 tab Q4H PRN PO MODERATE PAIN (4- 6) Last administered on 06/10/17 12:54; Admin Dose 2 TAB; Start 06/09/17 at 20: 00 Ondansetron HCl 4 mg 4 mg Q6H PRN IV NAUSEA; Start 06/09/17 at 20:00 Cefazolin Sodium (Ancef 1 Gm/50 ml (Pmx)) 50 ml @ 100 mls/hr Q8 IVPB Last administered on 06/10/17 13:56; Admin Dose 100 MLS/HR; Start 06/09/17 at 22:00 LUIS SLOAN Jun 10, 2017 18:04
[2017-06-10 20:28] VITALS: BP 115/67; RESP 16
[2017-06-11 02:54] VITALS: BP 105/69; RESP 18
[2017-06-11] MEDS: SOD CHLORIDE 0.9% 1,000 ML IV SCH (04:16)
[2017-06-11] MEDS: CEFAZOLIN 1 GM/50 ML (PMX) 50 ML IVPB SCH (05:25)
[2017-06-11] MEDS: PANTOPRAZOLE 40 MG INJ IV SCH (05:25)
[2017-06-11 07:29] VITALS: BP 120/74; RESP 16
[2017-06-11] MEDS ORDERED: HYDR-906 PO (09:27)
--- NOTE | 2017-06-11 09:33 | DS ---
Date/Time of Note Date/Time of Note DATE: 06/11/17 TIME: 09:28 Discharge Summary Admission/Discharge Info Admit Date/Time Jun 09, 2017 at 13:32 Discharge Date/Time Discharge Diagnosis 1. Abdominal pain with cholelithiasis and possible early cholecystitis. 2. History of cholelithiasis. Patient Condition: Stable Consults 1. Dr. Eyad Corey Hx of Present Illness This is a 37-year-old female who reports having history of gallstones who came to [facility] due to reports of abdominal pain that started this morning around 8 AM when she woke up. She also reported having some nausea and vomiting nonbilious nonbloody. She denies any sick contacts or any symptoms of chest pain or shortness of breath. She reports her pain is in the upper right abdominal quadrant that radiates to her back. She did come to [facility] and had a gallbladder ultrasound that did show her to have cholelithiasis but otherwise unremarkable right upper quadrant abdominal ultrasound. Additionally of abdominal pelvic CT scan did show multiple calcified gallstones without gallbladder wall thickening or pericholecystic fluid. There is also seen prominent common bile duct measuring 6 mm in diameter. Of note there is also seen the left adnexa 2.5 cm cyst likely a left ovarian cyst. On labs patient was with white count of 16.0. She did remain afebrile. She also was with slight hypokalemia with potassium 3.4. Currently the patient reports having some pain on right upper quadrant of abdomen more notably on palpation. She does not remember the last time her bowel movement was. She denied any pain with eating. We will evaluate her for the aformentiond issues Hospital Course This is a 37-year-old female with history of gallstones came in by [facility] due to reports of abdominal pain. Patient did have reported nausea and vomiting associated nonbilious nonbloody. She had a gallbladder ultrasound that did show to have cholelithiasis but otherwise unremarkable right upper quadrant abdominal ultrasound. Additionally abdominal pelvic CT scan showed multiple calcified gallstones without gallbladder wall thickening or pericholecystic fluid. There is also seen prominent common bile duct measuring 6 mm in diameter. An incidental finding of left ovarian cyst. She also had a white count of 16.0. Patient was seen by general surgeon. And antibiotics. With her symptoms she did have possible early cholecystitis and did undergo laparoscopic cholecystectomy with good response. She was provided with IV hydration and appropriate analgesics. She did have good response to treatment. During the course of stay she did improve. She was instructed to follow-up with surgeon within a week. The plan of care was discussed with the patient and patient did verbalize her understanding. On the day of discharge patient was in stable condition Discussed plan of care with Dr. Goodrich [facility] Active Scripts Cephalexin* (Cephalexin*) 500 Mg Capsule, 500 MG PO Q8, #21 CAP Prov:LUIS SLOAN 06/10/17 Discontinued Scripts Hydrocodone/Acetaminophen ([place] 5-325 Tablet) 1 Each Tablet, 1 TAB PO Q6H Y for PAIN, #7 TAB Prov:GAEL REY MD 12/17/16 Follow-up Plan CONDITION Patient Condition: Stable HOME CARE INSTRUCTIONS: Diet Instructions: Low Fat /Cholesterol ACTIVITY: Activity Restrictions: Slowly Increase Activity Rest between Activity FOLLOW UP/APPOINTMENTS Follow-up Plan 1. Follow up with Dr. Eyad Corey in one week Primary Care Provider Care Physician No Primary Time spent on discharge: > 30 minutes LUIS SLOAN Jun 11, 2017 09:33
== END 2017-06-11 12:00 | disposition home or self-care (01) | DRG 419 ==
LOC: E/R 08:40 → MS2 13:32
PROVIDERS: ADMIT Internal Medicine; ATTEND Internal Medicine
PROC: 0FT44ZZ Resection of Gallbladder, Percutaneous Endoscopic Approach (ICD-10-PCS; principal; 2017-06-09 17:30)
DX: K80.12 Calculus of gallbladder with acute and chronic cholecystitis without obstruction (principal); I95.9 Hypotension, unspecified; E86.0 Dehydration; E87.6 Hypokalemia; N83.202 Unspecified ovarian cyst, left side
CPT/HCPCS: 36415; 74176; 76705; 80053; 80061; 81001; 83036; 83690; 83735; 84100; 84436; 84443; 84479; 84484; 85025; 85610; 87086; 88304; 93005; 96374; 96375; C9113; J0690; J0696; J1100; J1170; J1885; J2175; J2250; J2270; J2405; J2543; J2795; J3010; J7030; J7999

== ENCOUNTER 2018-10-20 08:35 | Emergency (ER) | END 2018-10-20 10:32 | disposition home or self-care (01) ==